=== PATIENT | male | born 1955 | race Caucasian/White ===

== ENCOUNTER → 2019-09-17 | Outpatient (CLI) | payer MEDICARE | LOC: COL.RAD 09:02 | DX: Z01.812 Encounter for preprocedural laboratory examination (principal); S83.242A Other tear of medial meniscus, current injury, left knee, initial encounter; M22.42 Chondromalacia patellae, left knee; M67.462 Ganglion, left knee; Z98.890 Other specified postprocedural states | CPT/HCPCS: A9585 ==